=== PATIENT | female | born 1930 | race Hispanic/Latino ===

== ENCOUNTER 2021-03-24 14:11 | Emergency (ER) | payer MEDICARE, OTHER ==
[~2021-03-24] VITALS: Ht 157.5 cm; Wt 63.5 kg
[2021-03-24] MEDS ORDERED: CEFTRIAXONE 1 GM in SODIUM CHLORIDE 0.9% 50ML 50 ML IV ONE (16:30)
[2021-03-24] MEDS ORDERED: SODIUM CHLORIDE 0.9% 500ML 500 ML IV ONE (16:30)
[2021-03-24] MEDS ORDERED: SODIUM CHLORIDE 0.9% 1000ML 1,000 ML IV SCH (16:45)
[2021-03-24] MEDS ORDERED: SODIUM CHLORIDE 0.9% 1000ML 1,000 ML ONE (16:52)
[2021-03-24] MEDS ORDERED: CEFTRIAXONE 1 GM VIAL ONE (16:52)
[2021-03-24] MEDS ORDERED: PEPCID20 MG PO (16:55)
[2021-03-24] MEDS ORDERED: LIDOPATCH1 EACH TOP (16:55)
[2021-03-24] MEDS ORDERED: LASIX40 MG PO (16:55)
[2021-03-24] MEDS ORDERED: MELATONIN3 MG PO (16:55)
[2021-03-24] MEDS ORDERED: FLONASE ALLERG9.9 ML INH (16:55)
[2021-03-24] MEDS ORDERED: OXYCODONE HCL20 M1 PO (16:55)
[2021-03-24] MEDS ORDERED: MUCINEX DM ER1 EACH PO (16:55)
[2021-03-24] MEDS ORDERED: PRAVASTATIN SOD20 MG (16:55)
[2021-03-24] MEDS ORDERED: ASPIRIN CHEW81 MG PO (16:55)
[2021-03-24] MEDS ORDERED: CITALOPRAM HBR20 MG PO (16:55)
[2021-03-24] MEDS ORDERED: LEVOTHYROXINE112 MCG PO (16:55)
[2021-03-24] MEDS ORDERED: CEFDINIR300 MG PO (17:28)
== END 2021-03-24 18:29 | disposition home or self-care (01) ==
LOC: FSED 15:05
DX: S80.02XA Contusion of left knee, initial encounter (principal); S80.01XA Contusion of right knee, initial encounter; W01.0XXA Fall on same level from slipping, tripping and stumbling without subsequent striking against object, initial encounter; Y93.01 Activity, walking, marching and hiking; Y92.000 Kitchen of unspecified non-institutional (private) residence as the place of occurrence of the external cause; N39.0 Urinary tract infection, site not specified; E11.9 Type 2 diabetes mellitus without complications; E03.9 Hypothyroidism, unspecified; E78.5 Hyperlipidemia, unspecified; K21.9 Gastro-esophageal reflux disease without esophagitis; R94.31 Abnormal electrocardiogram [ECG] [EKG]; Z20.822 Contact with and (suspected) exposure to COVID-19
CPT/HCPCS: 70450; 71250; 73562 ×2; 80053; 81003; 82553; 84484; 85025; 93005; 99284; J0696; J7030; U0002

== ENCOUNTER 2021-05-18 15:24 | Emergency (ER) | payer MEDICARE ==
[~2021-05-18] VITALS: Ht 157.5 cm; Wt 74.4 kg
[~2021-05-18 15:24] MED LIST: ASPIRIN CHEW81 MG PO; CEFDINIR300 MG PO; CITALOPRAM HBR20 MG PO; FLONASE ALLERG9.9 ML INH; LASIX40 MG PO; LEVOTHYROXINE112 MCG PO; LIDOPATCH1 EACH TOP; MELATONIN3 MG PO; MUCINEX DM ER1 EACH PO; OXYCODONE HCL20 M1 PO; PEPCID20 MG PO; PRAVASTATIN SOD20 MG
[2021-05-18] MEDS ORDERED: SODIUM CHLORIDE 0.9% 1000ML 1,000 ML IV SCH (16:15)
[2021-05-18] MEDS ORDERED: POTASSIUM CHLORIDE 20 MEQ TAB CR PO STA (16:54)
[2021-05-18] MEDS ORDERED: CEFTRIAXONE 1 GM in SODIUM CHLORIDE 0.9% 50ML 50 ML IV ONE (17:00)
[2021-05-18] MEDS ORDERED: POTASSIUM CHLORIDE 20 MEQ TAB CR PO ONE (17:23)
[2021-05-18] MEDS ORDERED: SODIUM CHLORIDE 0.9% 50ML 50 ML ONE (17:24)
[2021-05-18] MEDS ORDERED: CEFTRIAXONE 1 GM VIAL ONE (17:24)
[2021-05-18] MEDS ORDERED: CEFDINIR300 MG PO (18:31)
== END 2021-05-18 19:02 | disposition home or self-care (01) ==
LOC: FSED 15:27
DX: N39.0 Urinary tract infection, site not specified (principal); E87.6 Hypokalemia; E11.9 Type 2 diabetes mellitus without complications; E78.5 Hyperlipidemia, unspecified; K21.9 Gastro-esophageal reflux disease without esophagitis; E03.9 Hypothyroidism, unspecified
CPT/HCPCS: 70450; 80053; 81003; 85025; 87086; 99284; J0696; J7030; 87186

== ENCOUNTER 2021-05-31 15:27 | Emergency (ER) | payer MEDICARE ==
[~2021-05-31] VITALS: Ht 152.4 cm; Wt 74.4 kg
[2021-05-31] MEDS ORDERED: BACTRIM DS TAB1 EACH PO (18:49)
== END 2021-05-31 19:12 | disposition home or self-care (01) ==
LOC: FSED 16:50
DX: N39.0 Urinary tract infection, site not specified (principal); R33.9 Retention of urine, unspecified; E11.9 Type 2 diabetes mellitus without complications; Z87.440 Personal history of urinary (tract) infections; E03.9 Hypothyroidism, unspecified; K21.9 Gastro-esophageal reflux disease without esophagitis; E78.5 Hyperlipidemia, unspecified; Z88.1 Allergy status to other antibiotic agents; Z88.0 Allergy status to penicillin; B96.89 Other specified bacterial agents as the cause of diseases classified elsewhere; Z79.82 Long term (current) use of aspirin
CPT/HCPCS: 51700; 74176; 81003; 87086; 87186; 99283